=== PATIENT | female | born 1960 | race African-American/Black ===

== ENCOUNTER → 2019-03-23 | Outpatient (CLI) | payer BC ==
[2019-03-23 11:16] LABS: BASOPHILS % 1.2 % (0.0-2.0); EOSINOPHILS % 1.7 % (0.0-5.0); HEMATOCRIT. 39.5 % (36.0-48.0); HEMOGLOBIN. 13.3 g/dL (12.0-16.0); LYMPHOCYTES % 49.9 % (20.0-50.0); MEAN CORPUSCULAR HEMOGLOBIN 31.8 pg (28.0-32.0); MEAN CORPUSCULAR VOLUME 94.4 fL (81.0-99.0); MEAN PLATELET VOLUME 8.5 fl (7.4-10.4); MONOCYTES % 6.6 % (2.0-8.0); NEUTROPHILS % 40.6 % (40.0-76.0); PLATELET 310 x1000/uL (130-400); RED BLOOD CELL COUNT 4.18 mill/uL (4.2-5.4); RED CELL DISTRIBUTION WIDTH 13.7 % (11.6-14.6)
[2019-03-23 11:24] LABS: CHLORIDE 109 mEq/L (98-107)
[2019-03-23 11:27] LABS: CLARITY URINE CLEAR (CLEAR); COLOR URINE YELLOW (YELLOW); KETONES URINE NEGATIVE (NEGATIVE); LEUKOCYTE ESTERASE URINE NEGATIVE (NEGATIVE); NITRITE URINE NEGATIVE (NEGATIVE); OCCULT BLOOD URINE NEGATIVE (NEGATIVE); PH URINE 7.5 (4.5-8.0); PROTEIN URINE NEGATIVE (NEGATIVE); SPECIFIC GRAVITY URINE 1.021 (1.005-1.030)
[2019-03-23 11:32] LABS: LDL CHOLESTEROL 115 mg/dL (5-100)
[2019-03-23 11:33] LABS: HDL CHOLESTEROL 76 mg/dL (40-59); TOTAL IRON BINDING CAPACITY 258 ug/dL (250-450)
[2019-03-23 11:35] LABS: CREATINE KINASE 77 IU/L (26-192)
[2019-03-23 11:36] LABS: T4 FREE 1.06 ng/dL (0.76-1.46)
[2019-03-23 11:44] LABS: FOLIC ACID (FOLATE) SERUM 6.3 ng/mL (>5.38)
[2019-03-24 09:06] LABS: THYROID PEROXIDASE ANTIBODY 6 IU/mL (0-34); VITAMIN D 25-OH 16.8 ng/mL (30.0-100.0)
[2019-03-24 10:08] LABS: ANTI-NUCLEAR ANTIBODIES DIRECT Negative (Negative)
== END | disposition home or self-care (01) ==
LOC: LAB 10:06
PROVIDERS: ATTEND Specialist
DX: I10 Essential (primary) hypertension (principal); E11.9 Type 2 diabetes mellitus without complications; E03.9 Hypothyroidism, unspecified; E55.9 Vitamin D deficiency, unspecified; E78.5 Hyperlipidemia, unspecified; D64.9 Anemia, unspecified
CPT/HCPCS: 36415; 80053; 80061; 81003; 82306; 82550; 82607; 82746; 83036; 83540; 83550; 84439; 84443; 84550; 85025; 85651; 86038; 86140; 86376; 86430; 86800

== ENCOUNTER → 2019-04-07 | Outpatient (CLI) | payer BC | END | disposition home or self-care (01) | LOC: US 10:21 | PROVIDERS: ATTEND Specialist | DX: E04.1 Nontoxic single thyroid nodule (principal) | CPT/HCPCS: 76536 ==